=== PATIENT | female | born 1975 | race Caucasian/White ===

== ENCOUNTER 2022-02-21 12:33 | Outpatient (CLI) | payer BC | END 2022-02-21 12:34 | disposition home or self-care (01) | LOC: CSHLAB 12:33 | PROVIDERS: ATTEND Obstetrics & Gynecology | DX: Z01.812 Encounter for preprocedural laboratory examination (principal); Z20.822 Contact with and (suspected) exposure to COVID-19 | CPT/HCPCS: 84703; 85027; 86850; 86900; 86901; 87811 ==

== ENCOUNTER 2022-02-24 10:06 | Day surgery (SDC) | payer BC ==
[2022-02-21 13:27] LABS: Mean Corpuscular HGB CONC 31.6 g/dL (32.0-36.0); Mean Corpuscular Hemoglobin 24.5 pg (27.0-33.0); Mean Corpuscular Volume 77.4 fl (81.6-98.3); Mean Platelet Volume 11.2 fl (7.4-10.4); Platelet Count 282 10x3/uL (150-450); RBC Distribution Width 15.1 % (11.5-14.5); Red Blood Cell (RBC) Count 3.27 10x6/uL (3.90-5.03); White Blood Cell (WBC) Count 6.8 10x3/uL (3.5-10.5)
[2022-02-21 13:35] LABS: BHCG - Serum Negative (NEGATIVE); Pregs Control Background? CLEAR/WHITE (CLR/WHITE); Pregs Control Bar Appear? YES (CONTROL BAR)
[2022-02-23 12:50] VITALS: BMI 24.7
[2022-02-24] MEDS ORDERED: CeleCOXIB 100 MG CAP ONE (10:30)
[2022-02-24] MEDS ORDERED: Lidocaine 1% MPF 2 ML VIAL ONE (10:30)
[2022-02-24 11:18] LABS: Anion Gap 12 mmol/L (10-20); BUN (Urea Nitrogen) 16 mg/dL (7.0-18.7); Calc. Creatinine Clearance 101 mL/min (70-130); Carbon Dioxide 26 mmol/L (22-29); Chloride 104 mmol/L (98-107); Estimated GFR 107; Glucose 124 mg/dL (70-105); Sodium 138 mmol/L (136-145)
[2022-02-24] MEDS ORDERED: Midazolam HCl 2 mg/2 ml Vial ONE ×2 (11:45→12:06)
[2022-02-24] MEDS ORDERED: CEFAZOLIN 2 GM VIAL ONE (11:55)
[2022-02-24] MEDS ORDERED: Fentanyl 100 MCG/2 ML VIAL ONE (12:05)
[2022-02-24] MEDS ORDERED: PROPOFOL 20 ML ONE (12:05)
[2022-02-24] MEDS ORDERED: Lidocaine 1% PF 5 ML VIAL ONE (12:06)
[2022-02-24] MEDS ORDERED: Ondansetron PF 4 MG/2 ML Vial ONE (12:23)
[2022-02-24] MEDS ORDERED: Dexamethasone 4 mg/ml Vial ONE (12:23)
[2022-02-24] MEDS ORDERED: HYDROcodone/Acetaminophen 5/325 mg Tablet ONE (13:30)
== END 2022-02-24 14:45 | disposition home or self-care (01) ==
LOC: CSHSDC 10:06
PROVIDERS: ATTEND Obstetrics & Gynecology
PROC: 0U5B8ZZ Destruction of Endometrium, Via Natural or Artificial Opening Endoscopic (ICD-10-PCS; principal; 2022-02-24)
DX: N92.0 Excessive and frequent menstruation with regular cycle (principal); N85.8 Other specified noninflammatory disorders of uterus; D50.0 Iron deficiency anemia secondary to blood loss (chronic); I48.91 Unspecified atrial fibrillation; Z79.01 Long term (current) use of anticoagulants; Z88.0 Allergy status to penicillin; Z20.822 Contact with and (suspected) exposure to COVID-19; Z98.890 Other specified postprocedural states
CPT/HCPCS: 36415; 80048; 84703; 85027; 86850; 86900; 86901; 87811; 88305; J0690; J1100; J2250; J2405; J2704; J3010